=== PATIENT | female | born 1985 | race Caucasian/White ===

== ENCOUNTER 2017-06-21 21:37 | Emergency (ER) | payer OTHER ==
[~2017-06-21] VITALS: Ht 154.9 cm; Wt 69.5 kg
[~2017-06-21 21:37] MED LIST: SULF1TAB47 PO; Z.0.NO CURRENT MEDS
[2017-06-21 21:41] VITALS: BP 123/72; PULSE 81; RESP 16; TEMP 98.1; O2SAT 98
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
== END 2017-06-21 22:50 | disposition home or self-care (01) ==
LOC: PHEFT 21:37
DX: S13.4XXA Sprain of ligaments of cervical spine, initial encounter (principal); V49.9XXA Car occupant (driver) (passenger) injured in unspecified traffic accident, initial encounter
CPT/HCPCS: 99282